=== PATIENT | female | born 1945 | race African-American/Black ===

== ENCOUNTER 2019-01-11 00:34 | Emergency (ER) | payer OTHER ==
[~2019-01-11] VITALS: Ht 170.2 cm; Wt 108.5 kg
[2019-01-11 00:39] VITALS: BP 141/66; Ht 170.2 cm; Wt 108.5 kg
== END 2019-01-11 01:19 | disposition left against medical advice (07) ==
LOC: ED 00:34
DX: Z53.21 Procedure and treatment not carried out due to patient leaving prior to being seen by health care provider (principal)